=== PATIENT | male | born 1965 | race Two or more races ===

== ENCOUNTER 2021-02-02 11:11 | Outpatient (CLI) | payer OTHER | END 2021-02-02 11:16 | disposition home or self-care (01) | LOC: SONOGRAMA 11:11 | PROVIDERS: ATTEND Podiatrist Foot Surgery | DX: M79.671 Pain in right foot (principal) ==

== ENCOUNTER → 2021-04-05 | Outpatient (CLI) | payer OTHER | END | disposition home or self-care (01) | LOC: MRI 13:37 | DX: M79.671 Pain in right foot (principal) | CPT/HCPCS: 73718 ==